=== PATIENT | male | born 1970 | race African-American/Black ===

== ENCOUNTER 2018-02-01 16:40 | Emergency (ER) | payer OTHER, SELFPAY ==
[2018-02-01 17:14] LABS: #Basophils 0.1 thou/uL (0.0-0.2); #Eosinphils 0.2 thou/uL (0.0-0.7); #Lymphocytes 2.4 thou/uL (1.20-3.40); #Monocytes 0.6 thou/uL (0.11-0.59); %Basophils 1.4 % (0.0-1.0); %Eosinophils 3.1 % (0.0-10.0); %Lymphocytes 32.6 % (21.0-51.0); %Neutrophils 54.8 % (42.0-75.0); Hemoglobin 15.4 g/dL (14.0-18.0); Mean Corpuscular HGB CONC 33.5 g/dL (32.0-36.0); Mean Corpuscular Hemoglobin 29.5 pg (27.0-31.0); Mean Corpuscular Volume 88.1 fL (78.0-98.0); Mean Platelet Volume 10.7 fL (7.4-10.4); Platelet Count 156 thou/uL (130-400); RBC Distribution Width 12.5 % (11.5-14.5); Red Blood Cell (RBC) Count 5.21 mill/uL (4.70-6.10); White Blood Cell (WBC) Count 7.2 thou/uL (4.8-10.8)
[2018-02-01] MEDS ORDERED: Insulin Regular 300 UNITS/3 ML VIAL ONE (17:46)
[2018-02-01 17:48] LABS: ALT (SGPT) 33 U/L (8-55); AST (SGOT) 36 U/L (5-34); Alkaline Phosphatase 86 U/L (40-150); Anion Gap 19 mmol/L (10-20); BUN (Urea Nitrogen) 23 mg/dL (8.9-20.6); Bilirubin, Total 0.5 mg/dL (0.2-1.2); Calc. Creatinine Clearance 0 mL/min (70-130); Calcium 9.6 mg/dL (7.8-10.44); Carbon Dioxide 19 mmol/L (22-29); Chloride 97 mmol/L (98-107); Estimated GFR-MDRD 38; Globulin 5.2 g/dL (2.4-3.5); Glucose 773 mg/dL (70-105); Potassium 5.1 mmol/L (3.5-5.1); Protein, Total 9.2 g/dL (6.0-8.3); Sodium 130 mmol/L (136-145)
[2018-02-01 18:16] LABS: Bilirubin Negative (Negative); Blood, Urine Negative (Negative); Clarity CLEAR (Clear); Glucose, Urine (Dipstick) >=1000 mg/dL (Negative); Leukocyte Negative (Negative); Nitrite Negative (Negative); Protein, Urine (Dipstick) Negative (Neg-Trace); Specific Gravity, Urine 1.031 (1.002-1.036); Urobilinogen 0.2 mg/dL (0.2-1.0)
--- NOTE | 2018-02-01 19:23 | RAD ---
PORTABLE AP CHEST X-RAY: 02/01/2018 HISTORY: Chest pain and weakness for one week. COMPARISON: 05/28/2012 FINDINGS: The cardiac silhouette and pulmonary vasculature are within normal limits. The lungs are clear. The re has been no interval change from the prior exam. IMPRESSION: No acute cardiopulmonary process. POS: [facility]
[2018-02-01 20:11] LABS: Calcium 9.5 mg/dL (7.8-10.44); Chloride 104 mmol/L (98-107); Potassium 4.4 mmol/L (3.5-5.1); Sodium 136 mmol/L (136-145)
[2018-02-01 20:13] LABS: Anion Gap 13 mmol/L (10-20); Carbon Dioxide 23 mmol/L (22-29)
[2018-02-01 20:15] LABS: Calc. Creatinine Clearance 0 mL/min (70-130); Estimated GFR-MDRD 49; Glucose 580 mg/dL (70-105)
[2018-02-01 20:16] LABS: BUN (Urea Nitrogen) 21 mg/dL (8.9-20.6)
[2018-02-01] MEDS ORDERED: Lidocaine Viscous Sol 2% 15 ml UD Cup ONE (21:22)
[2018-02-01] MEDS ORDERED: Mag-Al 1200 mg/1200 mg/30 ML UDCUP ONE (21:22)
[2018-02-01] MEDS ORDERED: cloNIDine 0.1 MG TAB ONE (21:22)
[2018-02-01] MEDS ORDERED: NPH, Human Insulin Isophane 300 UNIT/3 ML VIAL SC SCH (23:15)
--- NOTE | 2018-02-04 15:53 | EKG ---
Test Reason : EMERGENCY EXAM Blood Pressure : / mmHG Vent. Rate : 085 BPM Atrial Rate : 085 BPM P-R Int : 144 ms QRS Dur : 082 ms QT Int : 348 ms P-R-T Axes : 056 015 -06 degrees QTc Int : 414 ms Normal sinus rhythm Possible Left atrial enlargement Septal infarct , age undetermined T wave abnormality, consider inferior ischemia Abnormal ECG Confirmed by TARYN LOONEY ([id number]), school photograph editor CEDRIC FONSECA ([id number]) on 02/04/2018 3:53:06 PM Referred By: Confirmed By:TARYN LOONEY
== END 2018-02-02 00:45 | disposition home or self-care (01) ==
LOC: ERS 16:40
DX: E11.65 Type 2 diabetes mellitus with hyperglycemia (principal); I10 Essential (primary) hypertension; R07.9 Chest pain, unspecified; R11.10 Vomiting, unspecified
CPT/HCPCS: 36415; 36416; 71045; 80053; 81003; 84484; 85025; 87804; 93005; 96361; 96374; 96376; J1815

== ENCOUNTER 2018-07-08 06:53 | Emergency (ER) | payer SELFPAY ==
[2018-07-08] MEDS ORDERED: Ondansetron ODT 8 MG TAB ONE (07:21)
[2018-07-08] MEDS ORDERED: Ketorolac Tromethamine 60 MG/2 ML VIAL ONE (07:21)
[2018-07-08 07:46] LABS: #Basophils 0.1 thou/uL (0.0-0.2); #Eosinphils 0.1 thou/uL (0.0-0.7); #Lymphocytes 0.8 thou/uL (1.20-3.40); #Monocytes 0.6 thou/uL (0.11-0.59); #Neutrophils 6.3 thou/uL (1.40-6.50); %Eosinophils 1.8 % (0.0-10.0); %Lymphocytes 9.6 % (21.0-51.0); %Monocytes 7.1 % (0.0-10.0); %Neutrophils 80.5 % (42.0-75.0); Hemoglobin 14.3 g/dL (14.0-18.0); Mean Corpuscular HGB CONC 31.5 g/dL (32.0-36.0); Mean Corpuscular Hemoglobin 27.8 pg (27.0-31.0); Mean Corpuscular Volume 88.2 fL (78.0-98.0); Mean Platelet Volume 10.2 fL (7.4-10.4); Platelet Count 132 thou/uL (130-400); RBC Distribution Width 12.5 % (11.5-14.5); Red Blood Cell (RBC) Count 5.16 mill/uL (4.70-6.10); White Blood Cell (WBC) Count 7.8 thou/uL (4.8-10.8)
[2018-07-08 08:04] LABS: ALT (SGPT) 30 U/L (8-55); AST (SGOT) 25 U/L (5-34); Alkaline Phosphatase 61 U/L (40-150); Anion Gap 12 mmol/L (10-20); BUN (Urea Nitrogen) 16 mg/dL (8.9-20.6); Bilirubin, Total 1.1 mg/dL (0.2-1.2); Calc. Creatinine Clearance 0 mL/min (70-130); Calcium 9.1 mg/dL (7.8-10.44); Carbon Dioxide 26 mmol/L (22-29); Chloride 104 mmol/L (98-107); Estimated GFR-MDRD 55; Globulin 3.5 g/dL (2.4-3.5); Glucose 232 mg/dL (70-105); Potassium 4.1 mmol/L (3.5-5.1); Protein, Total 7.5 g/dL (6.0-8.3); Sodium 138 mmol/L (136-145)
[2018-07-08] MEDS ORDERED: Morphine 4 MG/ML VIAL ONE (09:02)
== END 2018-07-08 11:33 | disposition home or self-care (01) ==
LOC: ERS 06:53
DX: K29.70 Gastritis, unspecified, without bleeding (principal); E11.9 Type 2 diabetes mellitus without complications; I10 Essential (primary) hypertension; Z79.4 Long term (current) use of insulin
CPT/HCPCS: 36415; 36416; 80053; 85025; 96361; 96372; 96374; J0500; J1885; J2270

== ENCOUNTER 2020-04-24 11:41 | Outpatient (CLI) | payer OTHER | END 2020-04-24 11:42 | disposition home or self-care (01) | LOC: BICRAD 11:41 | PROVIDERS: ATTEND Family Medicine | DX: Z02.71 Encounter for disability determination (principal) | CPT/HCPCS: 72100 ==

== ENCOUNTER 2021-09-19 22:50 | Emergency (ER) | payer SELFPAY | END 2021-09-19 23:48 | disposition home or self-care (01) | LOC: ERS 22:50 | DX: S00.412A Abrasion of left ear, initial encounter (principal); E11.9 Type 2 diabetes mellitus without complications; I10 Essential (primary) hypertension; Z79.4 Long term (current) use of insulin; X58.XXXA Exposure to other specified factors, initial encounter | CPT/HCPCS: 99282 ==

== ENCOUNTER 2022-10-10 10:35 | Inpatient (IN) | payer SELFPAY ==
[~2022-10-10 10:35] MED LIST: Iopamidol 370 76% 100 ML VIAL ONE
[2022-10-10] MEDS ORDERED: Ondansetron PF 4 MG/2 ML Vial ONE (11:05)
[2022-10-10 11:08] LABS: #Basophils 0.1 thou/uL (0.0-0.2); #Eosinphils 0.3 thou/uL (0.0-0.7); #Monocytes 0.6 thou/uL (0.11-0.59); #Neutrophils 3.5 thou/uL (1.40-6.50); %Basophils 1.2 % (0.0-1.0); %Eosinophils 3.9 % (0.0-10.0); %Monocytes 9.3 % (0.0-10.0); Hematocrit 47.2 % (42.0-52.0); Hemoglobin 16.1 g/dL (14.0-18.0); Mean Corpuscular HGB CONC 34.1 g/dL (32.0-36.0); Mean Corpuscular Hemoglobin 27.8 pg (27.0-31.0); Mean Corpuscular Volume 81.4 fl (78.0-98.0); Mean Platelet Volume 12.6 fL (7.4-10.4); Platelet Count 154 10x3/uL (130-400); RBC Distribution Width 12.9 % (11.5-14.5); White Blood Cell (WBC) Count 6.9 10x3/uL (4.8-10.8)
[2022-10-10 11:31] LABS: ALT (SGPT) 18 U/L (8-55); AST (SGOT) 13 U/L (5-34); Albumin 4.1 g/dL (3.5-5.0); Alkaline Phosphatase 90 U/L (40-110); Anion Gap 18 mmol/L (10-20); BUN (Urea Nitrogen) 27 mg/dL (8.4-25.7); Bilirubin, Total 0.7 mg/dL (0.2-1.2); Calc. Creatinine Clearance 0 mL/min (70-130); Calcium 9.7 mg/dL (7.8-10.44); Carbon Dioxide 24 mmol/L (22-29); Chloride 90 mmol/L (98-107); Estimated GFR 36; Globulin 4.2 g/dL (2.4-3.5); Lipase 115 U/L (8-78); Magnesium 1.9 mg/dL (1.6-2.6); Potassium 3.9 mmol/L (3.5-5.1); Protein, Total 8.3 g/dL (6.0-8.3); Sodium 128 mmol/L (136-145)
[2022-10-10 11:34] LABS: Troponin I 0.017 ng/mL (< 0.028)
[2022-10-10 11:55] LABS: Phosphorus 3.9 mg/dL (2.3-4.7)
[2022-10-10 12:06] LABS: Glucose 720 mg/dL (70-105)
[2022-10-10 12:07] LABS: Glucose 796 mg/dL (70-105)
[2022-10-10 12:40] LABS: Actual Bicarbonate (HCO3v) 25.9 mEq/L (22-28); Analyzer IN Cardio ER; Base Excess 1.8 mEq/L (-2.0 to +3.0); Calcium, Ionized (venous) 1.04 mmol/L (1.16-1.32); Chloride (VBG) 95 mmol/L (98-106); Hematocrit-VBG 49 % (42.0-52.0); Hemoglobin (Hb) 16.8 g/dL (13.1-17.2); Potassium (VBG) 4.05 mmol/L (3.70-5.30); Sodium 132.6 mmol/L (133-146)
[2022-10-10] MEDS ORDERED: Insulin Regular 300 UNITS/3 ML VIAL ONE (12:55)
[2022-10-10 13:19] LABS: Bacteria/HPF None Seen HPF (None Seen); Bilirubin Negative (Negative); Blood, Urine Negative (Negative); CAUTI Indications for Culture Alt mental st,lethar; Clarity Clear (Clear); Glucose, Urine (Dipstick) Greater than 1000 mg/dL (Negative); Ketone, Urine Negative (Negative); Leukocyte Negative Leu/uL (Negative); Nitrite Negative (Negative); Protein, Urine (Dipstick) 10 mg/dL (Neg-Trace); RBC/HPF None Seen HPF (0-3); Squamous Epithelial 0-3 HPF (0-3); Urobilinogen Normal mg/dL (Less than 2); WBC/HPF 0-3 HPF (0-3)
[2022-10-10 13:22] LABS: Urine Culture Reflex No No
[2022-10-10] MEDS ORDERED: Dextrose 50% Abboject 50 ML SYRINGE SLOW IVP PRN (14:49)
[2022-10-10] MEDS ORDERED: Ondansetron ODT 4 MG TAB PO PRN (14:49)
[2022-10-10] MEDS ORDERED: Dextrose 5% in Water 1,000 ML IV PRN (14:49)
[2022-10-10] MEDS ORDERED: Glucagon 1 MG/ML KIT IM PRN (14:49)
[2022-10-10] MEDS ORDERED: Insulin Glargine 30 UNITS/0.3 ML VIAL SC SCH (15:00)
[2022-10-10] MEDS: Insulin Regular 300 UNITS/3 ML VIAL SC PRN ×2 (17:26→20:37)
[2022-10-10 17:49] VITALS: BMI 37.1
[2022-10-11] MEDS: Insulin Regular 300 UNITS/3 ML VIAL SC PRN ×6 (05:22→19:39)
[2022-10-11 06:51] LABS: Anion Gap 13 mmol/L (10-20); BUN (Urea Nitrogen) 27 mg/dL (8.4-25.7); Calc. Creatinine Clearance 89 mL/min (70-130); Calcium 9.4 mg/dL (7.8-10.44); Carbon Dioxide 27 mmol/L (22-29); Chloride 98 mmol/L (98-107); Estimated GFR 43; Potassium 3.7 mmol/L (3.5-5.1); Sodium 134 mmol/L (136-145)
[2022-10-11 06:57] LABS: Glucose 406 mg/dL (70-105)
[2022-10-11] MEDS: Acetaminophen 325 MG TAB PO PRN (09:07)
[2022-10-11] MEDS ORDERED: Insulin Glargine 30 UNITS/0.3 ML VIAL SC SCH ×2 (09:45→11:15)
[2022-10-11 12:34] LABS: Glucose 543 mg/dL (70-105)
[2022-10-11 14:16] LABS: Anion Gap 16 mmol/L (10-20); BUN (Urea Nitrogen) 25 mg/dL (8.4-25.7); Calc. Creatinine Clearance 98 mL/min (70-130); Calcium 9.9 mg/dL (7.8-10.44); Carbon Dioxide 23 mmol/L (22-29); Chloride 97 mmol/L (98-107); Estimated GFR 49; Potassium 4.1 mmol/L (3.5-5.1); Sodium 132 mmol/L (136-145)
[2022-10-11 14:20] LABS: Glucose 437 mg/dL (70-105)
[2022-10-11 17:02] LABS: Hemoglobin A1c 10.5 % (4.0-6.0)
[2022-10-11] MEDS: Sodium Chloride 0.9% 1,000 ML IV SCH (17:30)
[2022-10-11] MEDS ORDERED: Benzocaine/Menthol 1 LOZ LOZ PO PRN (19:39)
[2022-10-11] MEDS: Famotidine 20 MG TAB PO SCH (20:08)
[2022-10-11] MEDS: NIFEdipine XL 60 MG TAB PO SCH (20:08)
[2022-10-11] MEDS: Atorvastatin Calcium 40 MG TAB PO SCH (20:08)
[2022-10-11] MEDS: Carvedilol 25 MG TAB PO SCH (20:08)
[2022-10-11 20:18] LABS: Amphetamine Not Detected (NotDetected); Barbiturates Screen Not Detected (NotDetected); Benzodiazepine Screen Not Detected (NotDetected); Cocaine Metabolite Screen Not Detected (NotDetected); Methadone Not Detected (NotDetected); Methamphetamine Not Detected (NotDetected); Opiate Screen Not Detected (NotDetected); Oxycodone Screen Not Detected (NotDetected); Phencyclidine (PCP) Not Detected (NotDetected); THC/Cannabinoid Screen Not Detected (NotDetected); Tricyclic Screen Not Detected (NotDetected)
[2022-10-11] MEDS: Mag-Al 1200 mg/1200 mg/30 ML UDCUP PO SCH ×2 (22:21→22:24)
[2022-10-12] MEDS: Sodium Chloride 0.9% 1,000 ML IV SCH ×4 (02:39→23:41)
[2022-10-12] MEDS: Insulin Regular 300 UNITS/3 ML VIAL SC PRN ×6 (05:29→23:35)
[2022-10-12] MEDS: Empagliflozin 25 MG TAB PO SCH (08:34)
[2022-10-12] MEDS: NIFEdipine XL 60 MG TAB PO SCH ×2 (08:34→19:35)
[2022-10-12] MEDS: Carvedilol 25 MG TAB PO SCH ×2 (08:35→19:36)
[2022-10-12] MEDS: Famotidine 20 MG TAB PO SCH (08:35)
[2022-10-12] MEDS: Aspirin 81 mg Enteric Coated Tablet PO SCH (08:35)
[2022-10-12] MEDS ORDERED: Insulin Glargine 30 UNITS/0.3 ML VIAL SC SCH ×3 (09:00→21:00)
[2022-10-12] MEDS: Insulin Glargine 30 UNITS/0.3 ML VIAL SC SCH (19:36)
[2022-10-12] MEDS: Atorvastatin Calcium 40 MG TAB PO SCH (19:36)
[2022-10-13] MEDS: Insulin Regular 300 UNITS/3 ML VIAL SC PRN ×4 (04:37→18:11)
[2022-10-13 08:18] LABS: #Basophils 0.1 thou/uL (0.0-0.2); #Eosinphils 0.4 thou/uL (0.0-0.7); #Monocytes 0.9 thou/uL (0.11-0.59); #Neutrophils 3.2 thou/uL (1.40-6.50); %Basophils 0.8 % (0.0-1.0); %Eosinophils 5.1 % (0.0-10.0); %Monocytes 11.7 % (0.0-10.0); %Neutrophils 42.5 % (42.0-75.0); Hematocrit 42.2 % (42.0-52.0); Hemoglobin 14.1 g/dL (14.0-18.0); Mean Corpuscular HGB CONC 33.4 g/dL (32.0-36.0); Mean Corpuscular Hemoglobin 28.3 pg (27.0-31.0); Mean Corpuscular Volume 84.7 fl (78.0-98.0); Platelet Count 129 10x3/uL (130-400); RBC Distribution Width 13.2 % (11.5-14.5); Red Blood Cell (RBC) Count 4.98 mill/uL (4.70-6.10); White Blood Cell (WBC) Count 7.6 10x3/uL (4.8-10.8)
[2022-10-13 08:30] LABS: Anion Gap 8 mmol/L (10-20); BUN (Urea Nitrogen) 23 mg/dL (8.4-25.7); Calc. Creatinine Clearance 95 mL/min (70-130); Carbon Dioxide 23 mmol/L (22-29); Chloride 106 mmol/L (98-107); Estimated GFR 47; Glucose 304 mg/dL (70-105); Potassium 3.8 mmol/L (3.5-5.1); Sodium 133 mmol/L (136-145)
[2022-10-13] MEDS: Acetaminophen 325 MG TAB PO PRN ×2 (08:57→20:57)
[2022-10-13] MEDS: NIFEdipine XL 60 MG TAB PO SCH ×2 (08:58→20:58)
[2022-10-13] MEDS ORDERED: Insulin Glargine 30 UNITS/0.3 ML VIAL SC SCH (09:00)
[2022-10-13] MEDS: Sodium Chloride 0.9% 1,000 ML IV SCH ×2 (09:00→18:15)
[2022-10-13] MEDS: Carvedilol 25 MG TAB PO SCH ×2 (09:00→20:58)
[2022-10-13] MEDS ORDERED: Famotidine 20 MG TAB PO SCH ×2 (09:00→22:00)
[2022-10-13] MEDS: Empagliflozin 25 MG TAB PO SCH (09:01)
[2022-10-13] MEDS: Aspirin 81 mg Enteric Coated Tablet PO SCH (09:01)
[2022-10-13] MEDS ORDERED: metFORMIN 500 MG TAB PO SCH ×3 (09:06→17:00)
[2022-10-13] MEDS: Insulin Glargine 30 UNITS/0.3 ML VIAL SC SCH ×2 (09:13→20:59)
[2022-10-13] MEDS ORDERED: Ketorolac Tromethamine 30 MG/ML VIAL IVP SCH (10:45)
[2022-10-13] MEDS ORDERED: Alogliptin 25 MG TAB PO SCH (11:00)
[2022-10-13] MEDS: Fioricet 325/50/40 mg Tablet PO PRN (15:06)
[2022-10-13] MEDS: Atorvastatin Calcium 40 MG TAB PO SCH (20:58)
[2022-10-13] MEDS: HumaLOG 300 UNITS/3 ML VIAL SC SCH (20:59)
[2022-10-13] MEDS: Heparin 5,000 UNITS/ML VIAL SC SCH (21:02)
[2022-10-14] MEDS: Fioricet 325/50/40 mg Tablet PO PRN ×2 (00:14→13:37)
[2022-10-14] MEDS ORDERED: Ketorolac Tromethamine 30 MG/ML VIAL IVP SCH (02:00)
[2022-10-14] MEDS ORDERED: guaiFENesin ER 600 MG TAB PO SCH (02:00)
[2022-10-14] MEDS ORDERED: Sodium Chloride 0.65% Nasal 44 ML BOT EA NARE PRN (02:01)
[2022-10-14] MEDS: Acetaminophen 325 MG TAB PO PRN ×3 (02:15→20:20)
[2022-10-14] MEDS: Sodium Chloride 0.9% 1,000 ML IV SCH ×4 (02:20→18:15)
[2022-10-14] MEDS: Insulin Regular 300 UNITS/3 ML VIAL SC PRN ×3 (05:20→16:14)
[2022-10-14] MEDS: Empagliflozin 25 MG TAB PO SCH (08:16)
[2022-10-14] MEDS: Carvedilol 25 MG TAB PO SCH ×2 (08:16→20:21)
[2022-10-14] MEDS: guaiFENesin ER 600 MG TAB PO SCH ×2 (08:16→20:19)
[2022-10-14] MEDS: Aspirin 81 mg Enteric Coated Tablet PO SCH (08:16)
[2022-10-14] MEDS: Famotidine 20 MG TAB PO SCH ×2 (08:16→20:21)
[2022-10-14] MEDS: Insulin Glargine 30 UNITS/0.3 ML VIAL SC SCH ×2 (08:17→20:23)
[2022-10-14] MEDS: HumaLOG 300 UNITS/3 ML VIAL SC SCH ×3 (08:17→20:23)
[2022-10-14] MEDS: Heparin 5,000 UNITS/ML VIAL SC SCH ×2 (08:17→20:22)
[2022-10-14] MEDS: NIFEdipine XL 60 MG TAB PO SCH ×2 (08:18→20:19)
[2022-10-14] MEDS ORDERED: Alogliptin 25 MG TAB PO SCH (09:00)
[2022-10-14] MEDS: Atorvastatin Calcium 40 MG TAB PO SCH (20:21)
[2022-10-15] MEDS: Acetaminophen 325 MG TAB PO PRN ×4 (00:29→20:02)
[2022-10-15] MEDS: Sodium Chloride 0.9% 1,000 ML IV SCH ×4 (03:02→16:26)
[2022-10-15 06:51] LABS: #Basophils 0.1 thou/uL (0.0-0.2); #Eosinphils 0.2 thou/uL (0.0-0.7); #Neutrophils 5.3 thou/uL (1.40-6.50); %Basophils 0.6 % (0.0-1.0); %Eosinophils 2.1 % (0.0-10.0); %Lymphocytes 20.4 % (21.0-51.0); %Monocytes 12.1 % (0.0-10.0); %Neutrophils 63.6 % (42.0-75.0); Hematocrit 42.3 % (42.0-52.0); Mean Corpuscular HGB CONC 33.1 g/dL (32.0-36.0); Mean Corpuscular Hemoglobin 28.1 pg (27.0-31.0); Mean Corpuscular Volume 84.9 fl (78.0-98.0); Mean Platelet Volume 12.4 fL (7.4-10.4); Platelet Count 115 10x3/uL (130-400); RBC Distribution Width 13.6 % (11.5-14.5); Red Blood Cell (RBC) Count 4.98 mill/uL (4.70-6.10); White Blood Cell (WBC) Count 8.3 10x3/uL (4.8-10.8)
[2022-10-15 07:13] LABS: Anion Gap 14 mmol/L (10-20); BUN (Urea Nitrogen) 22 mg/dL (8.4-25.7); Calc. Creatinine Clearance 97 mL/min (70-130); Calcium 8.5 mg/dL (7.8-10.44); Carbon Dioxide 20 mmol/L (22-29); Chloride 108 mmol/L (98-107); Estimated GFR 48; Glucose 189 mg/dL (70-105); Potassium 3.9 mmol/L (3.5-5.1); Sodium 138 mmol/L (136-145)
[2022-10-15 07:35] LABS: Alpha-Fetoprotein,Tumor Marker Less than 2.0 ng/mL (0.89-8.78); Cancer Antigen - CA 125 10.4 U/mL (Less than 35)
[2022-10-15] MEDS: Famotidine 20 MG TAB PO SCH ×2 (08:54→20:02)
[2022-10-15] MEDS: Empagliflozin 25 MG TAB PO SCH (08:54)
[2022-10-15] MEDS: Carvedilol 25 MG TAB PO SCH ×2 (08:54→20:02)
[2022-10-15] MEDS: Aspirin 81 mg Enteric Coated Tablet PO SCH (08:54)
[2022-10-15] MEDS: guaiFENesin ER 600 MG TAB PO SCH ×2 (08:55→20:03)
[2022-10-15] MEDS: Insulin Glargine 30 UNITS/0.3 ML VIAL SC SCH ×2 (08:55→20:03)
[2022-10-15] MEDS: Heparin 5,000 UNITS/ML VIAL SC SCH ×2 (08:55→20:03)
[2022-10-15] MEDS: HumaLOG 300 UNITS/3 ML VIAL SC SCH (08:55)
[2022-10-15] MEDS: NIFEdipine XL 60 MG TAB PO SCH ×2 (08:56→20:02)
[2022-10-15] MEDS: Insulin Regular 300 UNITS/3 ML VIAL SC PRN ×2 (12:41→16:46)
[2022-10-15] MEDS: SUMAtriptan Succinate 25 MG TAB PO PRN (18:28)
[2022-10-15] MEDS: Atorvastatin Calcium 40 MG TAB PO SCH (20:02)
[2022-10-15] MEDS ORDERED: Ibuprofen 600 MG TAB PO SCH (23:00)
[2022-10-16] MEDS: SUMAtriptan Succinate 25 MG TAB PO PRN ×2 (00:27→08:48)
[2022-10-16] MEDS: Insulin Regular 300 UNITS/3 ML VIAL SC PRN (05:01)
[2022-10-16] MEDS: Sodium Chloride 0.9% 1,000 ML IV SCH ×2 (05:01→08:48)
[2022-10-16 08:07] VITALS: BP 122/83; TEMP 97.8
[2022-10-16] MEDS: Heparin 5,000 UNITS/ML VIAL SC SCH (08:42)
[2022-10-16] MEDS: Carvedilol 25 MG TAB PO SCH (08:47)
[2022-10-16] MEDS: Empagliflozin 25 MG TAB PO SCH (08:47)
[2022-10-16] MEDS: NIFEdipine XL 60 MG TAB PO SCH (08:47)
[2022-10-16] MEDS: Famotidine 20 MG TAB PO SCH (08:48)
[2022-10-16] MEDS: Aspirin 81 mg Enteric Coated Tablet PO SCH (08:48)
[2022-10-16] MEDS: guaiFENesin ER 600 MG TAB PO SCH (08:48)
[2022-10-16] MEDS ORDERED: Insulin Glargine 30 UNITS/0.3 ML VIAL SC SCH (09:00)
== END 2022-10-16 16:50 | disposition home or self-care (01) | DRG 638 ==
LOC: ERS 10:35 → T4-B 14:49 → OBSVTOIN 10-12 17:42
PROVIDERS: ADMIT Internal Medicine; ATTEND Internal Medicine Critical Care Medicine
DX: E11.65 Type 2 diabetes mellitus with hyperglycemia (principal); C18.9 Malignant neoplasm of colon, unspecified; C78.7 Secondary malignant neoplasm of liver and intrahepatic bile duct; N17.9 Acute kidney failure, unspecified; E11.22 Type 2 diabetes mellitus with diabetic chronic kidney disease; I12.9 Hypertensive chronic kidney disease with stage 1 through stage 4 chronic kidney disease, or unspecified chronic kidney disease; N18.30 Chronic kidney disease, stage 3 unspecified; F41.9 Anxiety disorder, unspecified; H53.8 Other visual disturbances; E78.5 Hyperlipidemia, unspecified; E11.649 Type 2 diabetes mellitus with hypoglycemia without coma; Z79.4 Long term (current) use of insulin; Z88.8 Allergy status to other drugs, medicaments and biological substances; Z88.6 Allergy status to analgesic agent; Z79.899 Other long term (current) drug therapy; Z79.82 Long term (current) use of aspirin; Z98.890 Other specified postprocedural states; Z91.148 Patient's other noncompliance with medication regimen for other reason
CPT/HCPCS: 36415; 36416; 70450; 70551; 74177; 80048; 80053; 80306; 81001; 82010; 82105; 82378; 82805; 83036; 83690; 83735; 84100; 84484; 85025; 86301; 86304; 93005; 96361; 96374; 96375; 96376; G0378; J1644; J1815; J1885; J2405; J7050; Q9967

== ENCOUNTER 2023-03-21 13:36 | Emergency (ER) | payer SELFPAY ==
[~2023-03-21 13:36] MED LIST changes: -Iopamidol 370 76% 100 ML VIAL ONE; +Iopamidol-370 76% 500 ML MDV (1 ML CHARGE) ONE
[2023-03-21 14:01] LABS: #Basophils 0.1 thou/uL (0.0-0.2); #Eosinphils 0.2 thou/uL (0.0-0.7); #Monocytes 0.7 thou/uL (0.11-0.59); #Neutrophils 5.2 thou/uL (1.40-6.50); %Basophils 0.8 % (0.0-1.0); %Eosinophils 2.3 % (0.0-10.0); %Lymphocytes 39.6 % (21.0-51.0); %Monocytes 6.5 % (0.0-10.0); %Neutrophils 50.4 % (42.0-75.0); Hematocrit 52.4 % (42.0-52.0); Hemoglobin 18.2 g/dL (14.0-18.0); Mean Corpuscular HGB CONC 34.7 g/dL (32.0-36.0); Mean Corpuscular Hemoglobin 28.6 pg (27.0-31.0); Mean Corpuscular Volume 82.3 fl (78.0-98.0); Platelet Count 190 10x3/uL (130-400); RBC Distribution Width 13.2 % (11.5-14.5); Red Blood Cell (RBC) Count 6.37 mill/uL (4.70-6.10); White Blood Cell (WBC) Count 10.3 10x3/uL (4.8-10.8)
[2023-03-21 14:17] LABS: ALT (SGPT) 17 U/L (8-55); AST (SGOT) 15 U/L (5-34); Alkaline Phosphatase 83 U/L (40-110); Anion Gap 18 mmol/L (10-20); BUN (Urea Nitrogen) 30 mg/dL (8.4-25.7); Bilirubin, Total 0.8 mg/dL (0.2-1.2); Calc. Creatinine Clearance 0 mL/min (70-130); Calcium 9.8 mg/dL (7.8-10.44); Carbon Dioxide 24 mmol/L (22-29); Chloride 100 mmol/L (98-107); Estimated GFR 32; Globulin 4.2 g/dL (2.4-3.5); Glucose 308 mg/dL (70-105); Potassium 3.6 mmol/L (3.5-5.1); Protein, Total 8.2 g/dL (6.0-8.3); Sodium 138 mmol/L (136-145)
[2023-03-21 16:16] LABS: Actual Bicarbonate (HCO3v) 25.7 mEq/L (22-28); Analyzer IN Cardio ER; Base Excess 0.3 mEq/L (-2.0 to +3.0); Calcium, Ionized (venous) 1.14 mmol/L (1.16-1.32); Chloride (VBG) 95 mmol/L (98-106); Hematocrit-VBG 64 % (42.0-52.0); Hemoglobin (Hb) 21.7 g/dL (13.1-17.2); Potassium (VBG) 3.42 mmol/L (3.70-5.30); Sodium 137 mmol/L (133-146); pH (venous) 7.386 (7.32-7.43)
[2023-03-21] MEDS ORDERED: diphenhydrAMINE 50 MG/ML VIAL ONE (17:12)
[2023-03-21 19:26] LABS: Bacteria/HPF None Seen HPF (None Seen); Bilirubin Negative (Negative); Blood, Urine Negative (Negative); CAUTI Indications for Culture Dysuria,urgency,freq; Clarity Clear (Clear); Glucose, Urine (Dipstick) Greater than 1000 mg/dL (Negative); Ketone, Urine Negative (Negative); Leukocyte 75 Leu/uL (Negative); Nitrite Negative (Negative); Protein, Urine (Dipstick) 100 mg/dL (Neg-Trace); RBC/HPF 0-3 HPF (0-3); Specific Gravity, Urine 1.046 (1.002-1.036); Squamous Epithelial 0-3 HPF (0-3); Urobilinogen Normal mg/dL (Less than 2)
[2023-03-21 19:28] LABS: Urine Culture Reflex No No
== END 2023-03-21 20:05 | disposition home or self-care (01) ==
LOC: ERS 13:36
DX: E11.65 Type 2 diabetes mellitus with hyperglycemia (principal); E86.0 Dehydration; I11.0 Hypertensive heart disease with heart failure; I50.9 Heart failure, unspecified; N17.9 Acute kidney failure, unspecified; Z79.4 Long term (current) use of insulin; Z79.84 Long term (current) use of oral hypoglycemic drugs; Z79.899 Other long term (current) drug therapy
CPT/HCPCS: 36415; 36416; 74177; 80053; 81001; 82010; 82805; 85025; 87086; 96361; 96374; J1200

== ENCOUNTER 2023-03-26 21:22 | Inpatient (IN) | payer OTHER, SELFPAY ==
[2023-03-26] MEDS ORDERED: Aspirin Chewable 81 MG TAB ONE (21:51)
[2023-03-26 22:02] LABS: Actual Bicarbonate (HCO3v) 21.7 mEq/L (22-28); Analyzer IN Cardio ER; Base Excess -2.9 mEq/L (-2.0 to +3.0); Chloride (VBG) 99 mmol/L (98-106); Hematocrit-VBG 46 % (42.0-52.0); Hemoglobin (Hb) 15.8 g/dL (13.1-17.2); Potassium (VBG) 4.45 mmol/L (3.70-5.30); Sodium 133 mmol/L (133-146)
[2023-03-26 22:22] LABS: #Basophils 0.1 thou/uL (0.0-0.2); #Eosinphils 0.2 thou/uL (0.0-0.7); #Monocytes 0.7 thou/uL (0.11-0.59); #Neutrophils 3.5 thou/uL (1.40-6.50); %Eosinophils 3.2 % (0.0-10.0); %Lymphocytes 34.3 % (21.0-51.0); %Monocytes 9.8 % (0.0-10.0); %Neutrophils 50.7 % (42.0-75.0); Hematocrit 44.8 % (42.0-52.0); Hemoglobin 15.3 g/dL (14.0-18.0); Mean Corpuscular HGB CONC 34.2 g/dL (32.0-36.0); Mean Corpuscular Hemoglobin 28.7 pg (27.0-31.0); Mean Corpuscular Volume 84.1 fl (78.0-98.0); Mean Platelet Volume 13.2 fL (7.4-10.4); Platelet Count 147 10x3/uL (130-400); RBC Distribution Width 13.2 % (11.5-14.5); Red Blood Cell (RBC) Count 5.33 mill/uL (4.70-6.10); White Blood Cell (WBC) Count 6.8 10x3/uL (4.8-10.8)
[2023-03-26 22:45] LABS: ALT (SGPT) 14 U/L (8-55); AST (SGOT) 14 U/L (5-34); Albumin 3.5 g/dL (3.5-5.0); Alkaline Phosphatase 73 U/L (40-110); Anion Gap 15 mmol/L (10-20); BUN (Urea Nitrogen) 20 mg/dL (8.4-25.7); Bilirubin, Total 0.4 mg/dL (0.2-1.2); Calc. Creatinine Clearance 0 mL/min (70-130); Calcium 8.5 mg/dL (7.8-10.44); Carbon Dioxide 20 mmol/L (22-29); Chloride 101 mmol/L (98-107); Estimated GFR 46; Globulin 3.3 g/dL (2.4-3.5); Lipase 107 U/L (8-78); Potassium 4.5 mmol/L (3.5-5.1); Protein, Total 6.8 g/dL (6.0-8.3); Sodium 131 mmol/L (136-145)
[2023-03-26 22:49] LABS: Troponin I 0.054 ng/mL (< 0.028)
[2023-03-26] MEDS ORDERED: HumaLOG 300 UNITS/3 ML VIAL SC PRN (23:10)
[2023-03-26] MEDS ORDERED: Glucagon 1 MG/ML KIT IM PRN (23:10)
[2023-03-26] MEDS ORDERED: Dextrose 5% in Water 1,000 ML IV PRN (23:10)
[2023-03-26] MEDS ORDERED: Dextrose 50% Abboject 50 ML SYRINGE SLOW IVP PRN (23:10)
[2023-03-26 23:11] LABS: Critical Call Chemistry NUR.MVB@2311; Glucose 603 mg/dL (70-105)
[2023-03-26] MEDS ORDERED: Ondansetron ODT 4 MG TAB PO PRN (23:11)
[2023-03-26] MEDS ORDERED: Calcium Carbonate 500 MG ChewTAB PO PRN (23:11)
[2023-03-26 23:54] LABS: Hemoglobin A1c 12.4 % (4.0-6.0)
[2023-03-26] MEDS ORDERED: Insulin Regular 300 UNITS/3 ML VIAL IVP SCH (23:59)
[2023-03-27 00:11] LABS: Troponin I 0.058 ng/mL (< 0.028)
[2023-03-27 02:23] LABS: #Basophils 0.1 thou/uL (0.0-0.2); #Eosinphils 0.3 thou/uL (0.0-0.7); #Monocytes 0.9 thou/uL (0.11-0.59); #Neutrophils 3.6 thou/uL (1.40-6.50); %Eosinophils 3.1 % (0.0-10.0); %Monocytes 10.7 % (0.0-10.0); %Neutrophils 44.3 % (42.0-75.0); Hematocrit 42.9 % (42.0-52.0); Hemoglobin 14.6 g/dL (14.0-18.0); Mean Corpuscular Hemoglobin 28.5 pg (27.0-31.0); Mean Corpuscular Volume 83.8 fl (78.0-98.0); Mean Platelet Volume 13.6 fL (7.4-10.4); RBC Distribution Width 13.1 % (11.5-14.5); Red Blood Cell (RBC) Count 5.12 mill/uL (4.70-6.10); White Blood Cell (WBC) Count 8.2 10x3/uL (4.8-10.8)
[2023-03-27 02:33] LABS: Platelet Count 144 10x3/uL (130-400)
[2023-03-27 02:50] LABS: Troponin I 0.051 ng/mL (< 0.028)
[2023-03-27 03:17] LABS: Anion Gap 13 mmol/L (10-20); BUN (Urea Nitrogen) 22 mg/dL (8.4-25.7); Calc. Creatinine Clearance 100 mL/min (70-130); Calcium 8.6 mg/dL (7.8-10.44); Carbon Dioxide 24 mmol/L (22-29); Cardiac Risk 6.1 (Less than 4.5); Chloride 102 mmol/L (98-107); Cholesterol 202 mg/dl (< 200 Desired); Estimated GFR 52; Glucose 383 mg/dL (70-105); HDL Cholesterol 33 mg/dL (>60 Neg Risk); LDL Cholesterol, Calculated 96 mg/dL; Potassium 4.1 mmol/L (3.5-5.1); Sodium 135 mmol/L (136-145); Triglycerides 366 mg/dL (Less than 150)
[2023-03-27] MEDS ORDERED: Ketorolac Tromethamine 30 MG (1 mL) VIAL IVP SCH (03:30)
[2023-03-27 04:47] LABS: Amphetamine Not Detected (NotDetected); Barbiturates Screen Not Detected (NotDetected); Benzodiazepine Screen Not Detected (NotDetected); Cocaine Metabolite Screen Detected (NotDetected); Methadone Not Detected (NotDetected); Methamphetamine Not Detected (NotDetected); Opiate Screen Not Detected (NotDetected); Oxycodone Screen Not Detected (NotDetected); Phencyclidine (PCP) Not Detected (NotDetected); THC/Cannabinoid Screen Not Detected (NotDetected); Tricyclic Screen Not Detected (NotDetected)
[2023-03-27] MEDS ORDERED: Lidocaine 2% Viscous Solution 10 ML, Aluminum & Magnesium Hydroxide 30 ML SSW SCH ×2 (06:30→21:00)
[2023-03-27] MEDS: Acetaminophen 325 MG TAB PO PRN ×2 (07:45→18:36)
[2023-03-27] MEDS ORDERED: NIFEdipine XL 60 MG ER.TAB PO SCH (09:00)
[2023-03-27] MEDS ORDERED: Insulin Glargine 30 UNITS/0.3 ML VIAL SC SCH (09:00)
[2023-03-27] MEDS ORDERED: Aspirin Chewable 81 MG TAB PO SCH (09:00)
[2023-03-27] MEDS ORDERED: Carvedilol 25 MG TAB PO SCH (09:00)
[2023-03-27] MEDS ORDERED: Regadenoson 0.4 MG/5 ML SYRINGE ONE (09:51)
[2023-03-27 11:05] VITALS: BMI 35.4
[2023-03-27] MEDS: Aspirin 81 mg Enteric Coated Tablet PO SCH (11:54)
[2023-03-27] MEDS: Famotidine 20 MG TAB PO SCH ×2 (11:54→21:15)
[2023-03-27] MEDS: Insulin Glargine 30 UNITS/0.3 ML VIAL SC SCH (11:55)
[2023-03-27] MEDS: HumaLOG 300 UNITS/3 ML VIAL SC PRN ×4 (13:37→23:53)
[2023-03-27] MEDS ORDERED: cloNIDine 0.1 MG TAB PO PRN (14:11)
[2023-03-27] MEDS ORDERED: Nitroglycerin 0.4 MG TAB (25 Tab Bottle) SL PRN (20:53)
[2023-03-27] MEDS ORDERED: Atorvastatin Calcium 40 MG TAB PO SCH (21:00)
[2023-03-27] MEDS ORDERED: HYDROcodone/Acetaminophen 5/325 mg Tablet PO SCH (21:00)
[2023-03-27] MEDS: NIFEdipine XL 60 MG ER.TAB PO SCH (21:06)
[2023-03-27] MEDS: Carvedilol 25 MG TAB PO SCH (21:07)
[2023-03-28] MEDS ORDERED: Sodium Chloride 0.9% 1,000 ML IV SCH ×3 (02:45→17:57)
[2023-03-28] MEDS ORDERED: Melatonin 3 MG TAB PO SCH (02:45)
[2023-03-28] MEDS ORDERED: Morphine 2 MG/ML VIAL SLOW IVP SCH (03:00)
[2023-03-28 05:33] LABS: #Basophils 0.1 thou/uL (0.0-0.2); #Eosinphils 0.2 thou/uL (0.0-0.7); #Neutrophils 3.3 thou/uL (1.40-6.50); %Basophils 0.8 % (0.0-1.0); %Eosinophils 2.8 % (0.0-10.0); %Monocytes 12.5 % (0.0-10.0); %Neutrophils 39.6 % (42.0-75.0); Hematocrit 40.4 % (42.0-52.0); Hemoglobin 13.5 g/dL (14.0-18.0); Mean Corpuscular HGB CONC 33.4 g/dL (32.0-36.0); Mean Corpuscular Hemoglobin 28.7 pg (27.0-31.0); Mean Corpuscular Volume 85.8 fl (78.0-98.0); Mean Platelet Volume 13.3 fL (7.4-10.4); Platelet Count 133 10x3/uL (130-400); RBC Distribution Width 13.2 % (11.5-14.5); Red Blood Cell (RBC) Count 4.71 mill/uL (4.70-6.10); White Blood Cell (WBC) Count 8.3 10x3/uL (4.8-10.8)
[2023-03-28 06:00] LABS: Anion Gap 10 mmol/L (10-20); BUN (Urea Nitrogen) 26 mg/dL (8.4-25.7); Calc. Creatinine Clearance 126 mL/min (70-130); Carbon Dioxide 25 mmol/L (22-29); Chloride 103 mmol/L (98-107); Estimated GFR 69; Glucose 309 mg/dL (70-105); Potassium 4.2 mmol/L (3.5-5.1); Sodium 134 mmol/L (136-145)
[2023-03-28] MEDS: NIFEdipine XL 60 MG ER.TAB PO SCH ×2 (09:19→20:00)
[2023-03-28] MEDS: Carvedilol 25 MG TAB PO SCH ×2 (09:19→19:59)
[2023-03-28] MEDS: Famotidine 20 MG TAB PO SCH ×2 (09:19→19:59)
[2023-03-28] MEDS: Aspirin 81 mg Enteric Coated Tablet PO SCH (09:19)
[2023-03-28] MEDS: Sodium Chloride 0.9% 1,000 ML IV SCH ×2 (09:32→16:53)
[2023-03-28] MEDS: Insulin Glargine 30 UNITS/0.3 ML VIAL SC SCH (09:32)
[2023-03-28] MEDS: Acetaminophen 325 MG TAB PO PRN (11:07)
[2023-03-28] MEDS: HumaLOG 300 UNITS/3 ML VIAL SC PRN ×3 (12:17→21:26)
[2023-03-28] MEDS ORDERED: HYDROcodone/Acetaminophen 5/325 mg Tablet PO PRN (17:56)
[2023-03-28] MEDS: Morphine 2 MG/ML VIAL SLOW IVP PRN (19:58)
[2023-03-28] MEDS: Atorvastatin Calcium 40 MG TAB PO SCH (19:59)
[2023-03-28] MEDS: Melatonin 3 MG TAB PO PRN (21:24)
[2023-03-29] MEDS: Morphine 2 MG/ML VIAL SLOW IVP PRN (02:36)
[2023-03-29] MEDS: Famotidine 20 MG TAB PO SCH ×2 (09:02→20:13)
[2023-03-29] MEDS: Carvedilol 25 MG TAB PO SCH ×2 (09:02→20:14)
[2023-03-29] MEDS: Aspirin 81 mg Enteric Coated Tablet PO SCH (09:02)
[2023-03-29] MEDS: NIFEdipine XL 60 MG ER.TAB PO SCH ×2 (09:02→20:13)
[2023-03-29] MEDS: Acetaminophen 325 MG TAB PO PRN (09:03)
[2023-03-29] MEDS: Insulin Glargine 30 UNITS/0.3 ML VIAL SC SCH (09:03)
[2023-03-29] MEDS: HumaLOG 300 UNITS/3 ML VIAL SC SCH ×2 (09:04→12:08)
[2023-03-29] MEDS: HumaLOG 300 UNITS/3 ML VIAL SC PRN ×4 (09:09→20:16)
[2023-03-29] MEDS: glyBURIDE 5 MG TAB PO SCH (16:56)
[2023-03-29] MEDS ORDERED: HumaLOG 300 UNITS/3 ML VIAL SC SCH (17:00)
[2023-03-29] MEDS: Atorvastatin Calcium 40 MG TAB PO SCH (20:14)
[2023-03-29] MEDS ORDERED: LIRAGLUTIDE 0.6 MG/0.1 ML SC SCH (21:00)
[2023-03-29] MEDS: Melatonin 3 MG TAB PO PRN (23:46)
[2023-03-30] MEDS: HumaLOG 300 UNITS/3 ML VIAL SC PRN ×3 (04:04→13:26)
[2023-03-30] MEDS ORDERED: FLU VACC QS2023-24(6MOS UP)/PF 60 MCG/0.5 ML SYRINGE IM ONE (09:00)
[2023-03-30] MEDS ORDERED: Empagliflozin 25 MG TAB PO SCH (09:00)
[2023-03-30] MEDS: NIFEdipine XL 60 MG ER.TAB PO SCH (09:29)
[2023-03-30] MEDS: glyBURIDE 5 MG TAB PO SCH (09:29)
[2023-03-30] MEDS: Aspirin 81 mg Enteric Coated Tablet PO SCH (09:29)
[2023-03-30] MEDS: Famotidine 20 MG TAB PO SCH (09:30)
[2023-03-30] MEDS: Carvedilol 25 MG TAB PO SCH (09:30)
[2023-03-30] MEDS: Acetaminophen 325 MG TAB PO PRN (09:30)
[2023-03-30] MEDS: Insulin Glargine 30 UNITS/0.3 ML VIAL SC SCH (09:30)
[2023-03-30] MEDS: HumaLOG 300 UNITS/3 ML VIAL SC SCH ×2 (09:32→13:25)
[2023-03-30 13:11] VITALS: BP 122/67; TEMP 97.8
== END 2023-03-30 14:06 | disposition home or self-care (01) | DRG 638 ==
LOC: ERS 21:22 → 2SW 23:23 → OBSVTOIN 23:23
PROVIDERS: ADMIT Student in an Organized Health Care Education/Training Program; ATTEND Internal Medicine
DX: E11.65 Type 2 diabetes mellitus with hyperglycemia (principal); C18.9 Malignant neoplasm of colon, unspecified; I13.0 Hypertensive heart and chronic kidney disease with heart failure and stage 1 through stage 4 chronic kidney disease, or unspecified chronic kidney disease; R07.89 Other chest pain; E11.649 Type 2 diabetes mellitus with hypoglycemia without coma; N18.30 Chronic kidney disease, stage 3 unspecified; E66.01 Morbid (severe) obesity due to excess calories; I50.9 Heart failure, unspecified; E78.5 Hyperlipidemia, unspecified; F41.9 Anxiety disorder, unspecified; F32.A Depression, unspecified; I16.0 Hypertensive urgency; R10.13 Epigastric pain; F19.10 Other psychoactive substance abuse, uncomplicated; G47.30 Sleep apnea, unspecified; Z98.890 Other specified postprocedural states; Z82.49 Family history of ischemic heart disease and other diseases of the circulatory system; Z91.199 Patient's noncompliance with other medical treatment and regimen due to unspecified reason; Z68.35 Body mass index [BMI] 35.0-35.9, adult; Z88.2 Allergy status to sulfonamides; Z88.8 Allergy status to other drugs, medicaments and biological substances; Z71.84 Encounter for health counseling related to travel
CPT/HCPCS: 36415; 36416; 71045; 78452; 80048; 80053; 80061; 80306; 82010; 82805; 83036; 83690; 83735; 83880; 84484; 85025; 93005; 93010; 93017; 93306; 94760; 96374; A9502; G0378; J1815; J1885; J2272; J2785; J7050